=== PATIENT | male | born 1965 | race American Indian/Alaskan Native ===

== ENCOUNTER 2017-11-25 06:37 | Emergency (ER) | payer SELFPAY ==
[2017-11-25] MEDS: MOTRIN PO ONE ×2 (07:07→08:00)
[2017-11-25 07:22] LABS: Basophils # (Auto) 0.1 K/mm3 (0.0-0.1); Basophils % (Auto) 0.9 % (0.0-1.8); Eosinophils # (Auto) 0.1 K/mm3 (0.0-0.4); Eosinophils % (Auto) 1.7 % (0.0-4.3); Hematocrit 45.5 % (35.5-45.6); Hemoglobin 15.4 gm/dl (11.8-15.2); Lymphocytes % (Auto) 32.1 % (13.4-35.0); Mean Corpuscular HGB Conc 34 % (32-34); Mean Corpuscular Hemoglobin 29 pg (28-32); Mean Corpuscular Volume 87 fl (84-94); Monocytes # (Auto) 0.4 K/mm3 (0.0-0.8); Monocytes % (Auto) 6.1 % (0.0-7.3); Platelet Count 263 K/mm3 (140-440); Red Blood Count 5.25 M/mm3 (3.65-5.03); Red Cell Distribution Width 14.4 % (13.2-15.2)
--- NOTE | 2017-11-25 08:22 | Emergency Department Report ---
- General Chief complaint: Skin/Abscess/Foreign Body Stated complaint: ADSCESS ON LT SIDE Time Seen by Provider: 11/25/17 08:16 Source: patient Mode of arrival: Ambulatory Limitations: No Limitations - History of Present Illness Initial comments: 51-year-old male past medical history hypertension, contrary to triage history pt DOES NOT endorse hx of HIV. Patient presents to ED for abscess which is emergency on left buttock over the last 3 days. Patient denies fevers or chills , states it is uncomfortable to sit down on his left buttocks. Patient also states he has been out of his hypertension medicine for approximately one month. Denies chest pain palpitations shortness of breath dizziness headache blurry vision of her lower extremity paresthesias or abdominal pain. MD complaint: abscess/boil Onset/Timin -: days(s) Severity: moderate Severity scale (0 -10): 5 Quality: aching Improves with: none Worsens with: palpation Context: none Treatments Prior to Arrival: none - Related Data Previous Rx's Medication Instructions Recorded Last Taken Type Acetaminophen [Acetaminophen TAB] 500 mg PO Q6HR PRN #20 tablet 11/25/17 Unknown Rx Olmesartan/Hydrochlorothiazide 1 each PO QDAY #30 tablet 11/25/17 Unknown Rx [Olmesartan-Hctz 40-12.5 mg Tab] Sulfamethoxazole/Trimethoprim 1 each PO BID #14 tablet 11/25/17 Unknown Rx [Bactrim DS TAB] Allergies Allergy/AdvReac Type Severity Reaction Status Date / Time No Known Allergies Allergy Verified 11/25/17 08:33 Abscess Boil HPI - HPI Chief Complaint: Skin/Abscess/Foreign Body Stated Complaint: ADSCESS ON LT SIDE Time Seen by Provider: 11/25/17 08:16 Home Medications: Previous Rx's Medication Instructions Recorded Last Taken Type Acetaminophen [Acetaminophen TAB] 500 mg PO Q6HR PRN #20 tablet 11/25/17 Unknown Rx Olmesartan/Hydrochlorothiazide 1 each PO QDAY #30 tablet 11/25/17 Unknown Rx [Olmesartan-Hctz 40-12.5 mg Tab] Sulfamethoxazole/Trimethoprim 1 each PO BID #14 tablet 11/25/17 Unknown Rx [Bactrim DS TAB] Allergies/Adverse Reactions: Allergies Allergy/AdvReac Type Severity Reaction Status Date / Time No Known Allergies Allergy Verified 11/25/17 08:33 ED Review of Systems ROS: Stated complaint: ADSCESS ON LT SIDE Other details as noted in HPI Constitutional: denies: chills, fever Eyes: denies: eye pain, eye discharge, vision change ENT: denies: ear pain, throat pain Respiratory: denies: cough, shortness of breath, wheezing Cardiovascular: denies: chest pain, palpitations Endocrine: no symptoms reported Gastrointestinal: denies: abdominal pain, nausea, diarrhea Genitourinary: denies: urgency, dysuria Musculoskeletal: denies: back pain, joint swelling, arthralgia Skin: as per HPI. denies: rash, lesions Neurological: denies: headache, weakness, paresthesias Psychiatric: denies: anxiety, depression Hematological/Lymphatic: denies: easy bleeding, easy bruising ED Past Medical Hx - Past Medical History Hx Hypertension: Yes Hx HIV: Yes - Social History Smoking Status: Never Smoker Substance Use Type: None - Medications Home Medications: Home Medications Medication Instructions Recorded Confirmed Last Taken Type Acetaminophen [Acetaminophen TAB] 500 mg PO Q6HR PRN #20 tablet 11/25/17 Unknown Rx Olmesartan/Hydrochlorothiazide 1 each PO QDAY #30 tablet 11/25/17 Unknown Rx [Olmesartan-Hctz 40-12.5 mg Tab] Sulfamethoxazole/Trimethoprim 1 each PO BID #14 tablet 11/25/17 Unknown Rx [Bactrim DS TAB] ED Physical Exam - General Limitations: No Limitations General appearance: alert, in no apparent distress - Head Head exam: Present: atraumatic, normocephalic - Eye Eye exam: Present: normal appearance - ENT ENT exam: Present: mucous membranes moist - Neck Neck exam: Present: normal inspection - Respiratory Respiratory exam: Present: normal lung sounds bilaterally. Absent: respiratory distress - Cardiovascular Cardiovascular Exam: Present: regular rate, normal rhythm. Absent: systolic murmur, diastolic murmur, rubs, gallop - GI/Abdominal GI/Abdominal exam: Present: soft, normal bowel sounds - Rectal Rectal exam: Present: deferred - Extremities Exam Extremities exam: Present: normal inspection - Back Exam Back exam: Present: normal inspection - Neurological Exam Neurological exam: Present: alert, oriented X3 - Psychiatric Psychiatric exam: Present: normal affect, normal mood - Skin Skin exam: Present: warm, dry, intact, normal color. Absent: rash - Expanded Skin Exam Expanded Description of rash: Present: tenderness, erythematous, swelling, fluctuant 1 - 2-3 cm diameter abscess here ED Course Vital Signs 11/25/17 11/25/17 06:48 07:19 Temperature 99.7 F H 99 F Pulse Rate 85 57 L Respiratory 20 16 Rate Blood Pressure 140/94 181/116 O2 Sat by Pulse 99 99 Oximetry - I & D Left Buttocks Type of Procedure: Simple Site: left buttocks Blade Size: 11 I & D Procedure: betadine prep, gauze wick placed Progress: Area infiltrated with lidocaine. Good local anesthesia achieved. Single stab incision made with 3-4 mL of purulent drainage obtained. Approximately 5 inches of quarter-inch Xeroform gauze packed into the wound after. Procedure tolerated well with minimal bleeding. Covered with gauze afterward. Wound cultures sent. ED Medical Decision Making - Lab Data Result diagrams: 11/25/17 07:02 - Medical Decision Making A/P: Left buttock abscess, Asymptomatic hypertension, medication refill 1-Tylenol when necessary, course of Bactrim. Successful evacuation of abscess achieved. I advised patient to remove packing at home in 12-24 hours or to return to ED after 24 hours for packing removal 2-refill on patient's hypertension medicines. Pt is asymptomatic at this time. I advised him that he must follow up with primary care 3-referral to primary care Critical care attestation.: If time is entered above; I have spent that time in minutes in the direct care of this critically ill patient, excluding procedure time. ED Disposition Clinical Impression: Abscess of left buttock, Encounter for incision and drainage procedure, Medication refill, Asymptomatic hypertension Disposition: - TO HOME OR SELFCARE Is pt being admited?: No Does the pt Need Aspirin: No Condition: Stable Instructions: Hypertension (ED), Abscess Incision and Drainage (ED) Prescriptions: Acetaminophen [Acetaminophen TAB] 500 mg PO Q6HR PRN #20 tablet PRN Reason: Pain , Severe (7-10) Olmesartan/Hydrochlorothiazide [Olmesartan-Hctz 40-12.5 mg Tab] 1 each PO QDAY # 30 tablet Sulfamethoxazole/Trimethoprim [Bactrim DS TAB] 1 each PO BID #14 tablet Referrals: [facility] [Provider Group] - 3-5 Days NOAM SHINE MD [Staff Physician] - 3-5 Days Forms: Work/School Release Form(ED) Time of Disposition: 08:51
[2017-11-25] MEDS ORDERED: CATAPRES ONE (08:44)
[2017-11-25] MEDS ORDERED: CATAPRES PO ONE (08:45)
[2017-11-25] MEDS ORDERED: HCTZ PO ONE (08:45)
[2017-11-25 09:25] VITALS: BP 171/110
== END 2017-11-25 09:25 | disposition home or self-care (01) ==
LOC: ED 06:37
DX: L02.31 Cutaneous abscess of buttock (principal); I10 Essential (primary) hypertension
CPT/HCPCS: 36415; 85025; 87076; 87116; 87186; 99283